=== PATIENT | male | born 1965 | race Two or more races ===

== ENCOUNTER 2017-09-13 14:51 | Emergency (ER) | payer SELFPAY ==
[2017-09-13 15:36] LABS: BILIRUBIN,URINE NEGATIVE (NEG); COLOR,URINE YELLOW; GLUCOSE,URINE >=1000 mg/dL (NEG); NITRITE,URINE NEGATIVE (NEG); PH,URINE 5.5; PROTEIN,URINE NEGATIVE (NEG-TRACE); UROBILINOGEN,URINE 0.2 mg/dL (0.2 mg/dL)
[2017-09-13 15:48] LABS: BACTERIA,URINE 0 /HPF (0-FEW); CLARITY,URINE CLEAR; RBC,URINE 0 /HPF (0-2); SQUAMOUS EPITHELIAL CELL,UR OCC /LPF; WBC,URINE OCC /HPF (0-4)
[2017-09-13] MEDS: hydroCHLOROthiazide 12.5 MG CAPSULE PO (16:06)
[2017-09-13] MEDS: LISINOPRIL 10 MG TABLET PO (16:07)
[2017-09-13] MEDS: cefTRIAXone IM 250 MG VIAL IM (16:08)
[2017-09-13] MEDS: AZITHROMYCIN 250 MG TABLET. PO (16:08)
[2017-09-13] MEDS: metroNIDAZOLE 500 MG TABLET PO (16:08)
== END 2017-09-13 16:52 | disposition home or self-care (01) ==
LOC: ER 16:52
DX: Z11.3 Encounter for screening for infections with a predominantly sexual mode of transmission (principal); I10 Essential (primary) hypertension
CPT/HCPCS: 81001; 87491; 87591; 96372; 99284-25; J0696; Q0144

== ENCOUNTER → 2019-06-07 | Outpatient (CLI) | payer OTHER ==
[2017-09-13 16:45] VITALS: BP 166/97
--- NOTE | 2019-06-07 10:08 | KCIC ---
ABDOMEN LTD History: Right-sided upper abdominal pain. Comparison: None. Technique: Transabdominal ultrasound images are obtained of the right upper quadrant. Findings: Visualized pancreas is unremarkable. Liver is increased in echogenicity. Right hepatic lobe measures 17.1 cm. Portal flow is hepatopedal. Gallbladder has an unremarkable appearance. Common bile duct caliber is normal measuring 5.2 mm in diameter. The right kidney measures 12.3 x 6.1 x 6.2 cm in length and is without evidence of obstruction or stone. IVC and proximal aorta not well seen due to overlying bowel gas. Nonaneurysmal mid and distal aorta. IMPRESSION: 1. Hepatomegaly with steatosis. Electronically signed by: Misbah Medina DO (06/07/2019 10:05 AM) [id number]
== END | disposition home or self-care (01) ==
LOC: KCIC US 08:18
PROVIDERS: ATTEND Family Medicine
DX: R16.0 Hepatomegaly, not elsewhere classified (principal); K76.0 Fatty (change of) liver, not elsewhere classified
CPT/HCPCS: 76705